=== PATIENT | male | born 2005 | race Caucasian/White ===

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

== ENCOUNTER 2025-05-10 09:18 | Outpatient (CLI) | payer OTHER, SELFPAY ==
--- OUTSIDE RECORDS SUMMARY | 2025-05-10 10:06 | XMS_ITS | Encounter Summary ---
Author Organization [facility] Address [address] [address] Care Team Providers Care Geophysical Computer Name Role Phone Pernell Saxena MD Primary Care Provider [phone] Encounter Details Date Type Department Care Team (Late st Contact Info) Description 08/25/[address] [address] Genesis Garcia MD [address] [place] [id number] Social History Tobacco Use Types Packs/Day Years Used Date Smoking Tobacco: Never Smokeless Tobacco: Never Alcohol Use Standard Drinks/Week Comments No 0 (1 standard drink = 0.6 oz pur e alcohol) Sex and Gender Information Value Date Recorded Sex Assigned at Not on file 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 Answer Date of Assessment Author No 03/31/2022 10:20 AM Haven Lagunas RN * Is person blind or have serious difficulty seeing? Answer Date of Assessment Author No 03/31/2022 10:20 AM Haven Lagunas RN * Does person have serious difficulty walking/climbing stairs? Answer Date of Assessment Author No 03/31/2022 10:20 AM Haven Lagunas RN * Does person have difficulty dressing/bathing? Answer Date of Assessment Author No 03/31/2022 10:20 AM Haven Lagunas RN * Does person have difficulty doing errands alone? Answer Date of Assessment Author Yes 03/31/2022 10:20 AM Haven Lagunas RN documented as of this encounter Mental Status * Does person have difficulty concentrating/remembering/making decisions? Answer Entry Date Author No 03/31/2022 10:20 AM Haven Lagunas RN documented in this encounter Miscellaneous Notes * Telephone Encounter - Genesis Garcia MD - 08/25/2023 4:26 PM CDT He has not been seen since November of last year. I can Rx one month worth PPI twice per day for ONLY one month, but he needs to be seen for more. Any provider fine. * Telephone Encounter - La Phillips RN - 08/25/2023 2:39 PM CDT Spoke to Keegan's Mom - She reports he's taking 40mg of nexium daily as prescribed. States even with PPI he has breakthrough reflux symptoms. Reports in the last week its keeping him up at night. Still eating/drinking ok, reports nausea but no vomiting, no recent illnesses or fever. Mom states he's really tried to watch his diet but nothing seems to help. Will forward update to Dr. Garcia for input. * Telephone Encounter - Sumaya Jung RN - 08/25/2023 12:34 PM CDT Received a call from mom that Keegan is having a lot of acid reflux even while on the Nexium 40mg once a day. Mom reports that they were going to establish care with a new GI because he is [address] Garcia's recommendations. Mom reports that they do not have a new GI. Mom is wanting to know what Dr. Garcia's thoughts are and would like to have his medical records sent to an adult GI office. Mom can be reached at [phone]. documented in this encounter Plan of Treatment Upcoming Encounters Date Type Department Care Team (Late st Contact Info) Description 10/04/2025 3:30 PM CDT Office Visit [facility] - ENT [address] [place] [address] Sayra Temple, JUAN [address] [place] [address] [place] [address] documented as of this encounter Visit Diagnoses Not on filedocumented in this encounter Care Teams Geophysical Computer Relationship Specialty Start Date End Date Pernell Saxena MD [address] [place] [phone] PCP - General Family Medicine 01/27/22 documented as of this encounter
--- OUTSIDE RECORDS SUMMARY | 2025-05-10 10:06 | XMS_ITS | Clinical Summary ---
Author Organization [facility] Address [address] [place] [address] Phone Care Team Providers Care Asphalt Worker Name Role Phone Unavailable Primary Care Provider Unavailabl e Allergies Active Allergy Reactions Criticality Noted Date Comments Penicillins Hives 11/06/2009 Medications cetirizine (ZyrTEC) 10 MG Tablet Take 10 mg by mouth. Active levothyroxine (SYNTHROID) 125 MCG Tablet Take 125 mcg by mouth. 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 Gender Identity Not on file Sexual Orientation Not on file Last Filed Vital Signs Vital Sign Reading Time Taken Comments Blood Pressure - - Pulse 92 03/31/2020 1:54 PM GENERAL LABORER Temperature 36.3 C (97.4 F) 03/31/2020 1:54 PM GENERAL LABORER Respiratory Rate - - Oxygen Saturation 98% 03/31/2020 1:54 PM GENERAL LABORER Inhaled Oxygen Concentration - - Weight 84.8 kg (187 lb) 03/31/2020 1:54 PM GENERAL LABORER Height - - Body Mass Index - - Plan of Treatment Health Maintenance Due Date Last Done Comments Hepatitis C Virus (HCV) Screening 2005 TdaP Immunization 2005 Varicella Immunization (1 of 2 - 13+ 2-dose series) 2018 Human Papillomavirus (HPV) Immunization (1 - Male 3-dose series) 01/08/2020 Meningococcal B Immunization (1 of 2 - Standard) 2021 Hepatitis B Immunization (1 of 3 - 19+ 3-dose series) 01/08/2024 Influenza Immunization (#1) 2025 SARS-COV-2 Immunization ( - 2024-26 season) 2025 Respiratory Syncytial Virus (RSV) Immunization (Adult) (1 - 1-dose 75+ series) 01/08/2080 Meningococcal Immunization (ACWY) Aged Out No longer eligible based on patient's age to complete this topic Pneumococcal Immunization Combined Aged Out No longer eligible based on patient's age to complete this topic Rotavirus Immunization Aged Out No lo nger eligible based on patient's age to complete this topic
--- OUTSIDE RECORDS SUMMARY | 2025-05-10 10:06 | XMS_ITS | Clinical Summary ---
Author Organization [facility] [employer] Address [address] [facility] [place] [address] Care Team Providers Care Foster Parent Name Role Phone Pernell Saxena MD Primary Care Provider [phone] Source Comments [facility] [employer],non-owned Affiliates and Associated Physician Practices is amultiple site organization consisting of ambulatory clinics and hospital sitesin [place], [place], [place] and [place]. This disclosure is being madepursuant to the Care Everywhere program and may not contain all information available regarding this patient. Last updated 18.[facility] [employer] Allergies Active Allergy Reactions Criticality Noted Date Comments Penicillins Urticaria 11/06/2009 Medications * Be aware that medications may not be up to date on this document. Alwaysverify current medications with the patient. cetirizine (ZYRTEC) 10 MG tablet Take 1 (one) tablet by mouth once daily Active buPROPion XL 24hr (WELLBUTRIN-XL) 150 MG tablet TAKE 1 TABLET BY MOUTH EVERY DAY IN THE MORNING 2 Active polyethylene glycol 3350 (MiraLax) 17 GM/SCOOP powder Take 17 (seventeen) g by mouth once daily 850 g 4 2 Active levothyroxine (Synthroid) 137 MCG tabletIndications: Congenital hypothyroidism Take 1 (one) tablet by mouth once daily 90 tablet 3 3 Active hyoscyamine (Levsin SL) 0.125 MG sublingual tablet Dissolve 1 (one) tablet under the tongue every 8 hours as needed for Spasms 40 tablet 5 3 Active esomeprazole (NexIUM) 40 MG capsule Take 1 (one) capsule by mouth 2 times daily, before breakfast and supper 180 capsule 4 Active Active Problems Problem Noted Date Diagnosed Date GERD (gastroesophageal reflux disease) 1 Chronic nonintractable headache 09/18/2017 Overview (09/18/2017): Keegan had 2 episodes where headache triggered weakness in his lower limbs and he felt he was not able to walk and after 4-5 hours it all resolved. Last time he was seen in the ER on 06/23/17 due to concern of lower extremity feeling heavy, weak after minute long sharp , pressure like pain in right temporal region. He was playing basket ball prior to that. He suddenly had headache went to lay down on the bench and started feeling that his body down neck was heavy and by the time EMS arrived he started feeling better Enough that only his legs felt heavy and not able to move. Similar episode happened about a year ago where he took a nap for 4 hours and got completely better on his own. He complained that he get 2-3 migraines per week and takes ibuprofen about 3 times a week. Usually does not have any neurological deficit except this two episodes. During this ER visit his older brother also was admitted for spontaneous pneumothorax from blebs. In the ER his exam was normal except he stiffened his legs when trying to walk. He walked out of hospital in next hour or so. Interval History LAMBERT Hx: First Onset: 8-9 Location: Left frontal. Radiate to: none Aura: None Duration: 4-6 Hours, and gives ibuprofen which helps him. Characteristic: Throbing headache and then sharp pain. Associated sx: Feels nausea and vominting after onset of headache and is a/w Photophobia, Phonophobia Frequency: 2-3/ month at onset; and got frequent to 2-3 per week but now spaced out once every 2 months. With physical activity more episodes. Exacerbating factors: Light and sounds Releaving factors: Sleeping, iuprofen Trauma/ Concussions: none Severity: 03/02. Other neurological Sx Not able to move his both legs, dragged at home. Triggers: None - stress, foods, beverages, lack of sleep, oversleeping, strong odors. LAMBERT change worse with: Physical activity. Missed scl in last 3 mo: None. someitmes restricts his daily activity. FHX of migraine LAMBERT: Both side Grandmothers, MEDICATION Ibuprofen, amitriptyline 10 mg for few months, - Did not help/; Vision evaluation: No need for prescription, needs vision therapy for focusing. Any seizure like activity none Sleep: Goes to sleep: 9 pm Falls a sleep in: 1 hour ; melatonin 5 mg and helps. Wakes up at: 5:30 - 6; 9 hrs of sleep per night. Snore: NO Get up gasping for air: NO Frequent awakenings: NO Day time naps: NO Toss and turn: NO Frequent meals: yes Caffeine /Tea / Soda: Tea occationally. Water intake: Drinks a lot of milk, 2.5 bottle of water. Exercise: PE, plays soccer. Stress at School / home : None. Depression evaluation: Sleep (insomnia/ hypersomnia): As above. Interest (diminished interest in pessurable activity): NO Guilt (feeling of unworthiness): NO Energy loss (fatigue): NO Concentration (decrease): NO Appetite change: NO Psycho-motor retardation/ agitation: NO Suicide/ homicidal (ideation): NO Prior neurological history: Negative for no neurological problems. Assessment & Plan (09/18/2017 7:09 AM CDT): 12 years old male with strong family hx of migraines comes for follow up after ER visit when he had acute migraine type headache triggers feeling of weakness in both lower extremities. This can be basilar migraine vs possible electrolyte abnormality. Explained that give fluids if he has one of these episodes right away and get his electrolytes checked right away. His frequency of headaches has gone down, so discussed that he does not need preventive medication. Continue ibuprofen for abortive medication. Goal: Decrease Headaches frequency and intensity to 0. PLAN: 1. Keep headache dairy. 2. Use ibuprofen as needed for headaches. If he is needing ibuprofen more then 3-4 times week then call us. Follow up in 6 months. Patient instructions: SMART headache management 1. Sleep: 1. Maintain good sleep routine. 2. Avoid distractions at bedtime such as TV, computer. 3. Get at least 8-10 hours of sleep nightly 2. Meals: Eat healthy diet, and do not skip meals 3. Activity: Maintain active lifestyle 4. Relaxation: decrease stress; Drink plenty of water, and avoid caffeine regularly. 5. Trigger avoidance :Do not use pain medication (such as Tylenol, Ibuprofen) more than 3-4 times/week in order to avoid medication overuse headaches. Congenital hypothyroidism 11/06/2009 Assessment & Plan (11/23/2018 2:00 PM CDT): 1) take levothyroxine daily 2) increase levothyroxine to 125mcg daily 3) check thyroid function today and again in 2 months 4) return in [address] Treviño Assessment & Plan (02/24/2016 1:32 PM CDT): 1) Check thyroid function today 2) return in [address] Treviño 3) continue present levothyroxine dose Assessment & Plan (08/26/2015 3:15 PM CDT): 1) NO changes at this time 2) recently increased levothyroxine to 112mcg daily 3) recheck levels in October 4) return in [address] 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 (AF LURIA, FLUZONE TRIVALENT; 6MO+) (IIV3) 04/01/2012,02/19/2010 DTaP VACCINE IM (6wk-6yrs) 2005,2005 ,2005 HEP B VACCINE, ADULT 3 DOSE 2005, 5,2005 HIB-PRP-OMP 3 DOSE 2005,2005, 005 INFLUENZA VACCINE 03/01/2013 MENINGOCOCCAL ACWY (MCV4P) VAC IM 11/06/2016 MMR 04/16/2006 MMR/VARICELLA 02/19/2010 POLIO IPV 2005,2005,2005 ROTAVIRUS, PENTAVALENT 01/13/2006 TDAP (7yrs+) 11/06/2016,02/19/2010 Family History Medical History Relation Name Comments Asthma Father Other Father GB removal, IBS , constipation, GERD Other Paternal Grandmother GERD, I BS, cholecystectomy Relation Name Status Comments Father Paternal Grandmother Social History Tobacco Use Types Packs/Day Years Used Date Smoking Tobacco: Never Passive Smoke Exposure: Never Smokeless Tobacco: Never Alcohol Use Standard Drinks/Week Comments No 0 (1 standard drink = 0.6 oz pur e alcohol) Sex and Gender Information Value Date Recorded Sex Assigned at Not on file Legal Sex Male 5:44 AM ERGONOMIST Gender Identity Not on file Sexual Orientation Not on file Last Filed Vital Signs Vital Sign Reading Time Taken Comments Blood Pressure 129/78 04/18/2025 1:53 PM ERGONOMIST Pulse 81 04/18/2025 1:53 PM ERGONOMIST Temperature 36.9 C (98.5 F) 12/06/2022 11:37 AM CDT Respiratory Rate 24 12/14/2022 10:28 AM CDT Oxygen Saturation 97% 04/18/2025 1:53 PM ERGONOMIST Inhaled Oxygen Concentration - - Weight 108.9 kg (240 lb) 04/18/2025 1:53 PM ERGONOMIST Height 177.8 cm (5' 10) 04/18/2025 1:53 PM ERGONOMIST Body Mass Index 34.44 04/18/2025 1:53 PM ERGONOMIST Plan of Treatment Upcoming Encounters Date Type Department Care Team (Late st Contact Info) Description 10/04/2025 3:30 PM CDT Office Visit [facility] - ENT [address] [place] [phone] Sayra Temple, JUAN [address] [place] [address] [address] [facility] [address] Health Maintenance Due Date Last Done Comments HEPATITIS B VACCINE (4 of 4 - 4-dose series) 2005 2005, 2005, 2005 HIV SCREENING 01/08/2020 HPV VACCINE (1 - Male 3-dose series) 01/08/2020 MENINGOCOCCAL (Group B) VACCINE SHARED DECISION-MAKING (1 of 2 - Standard) 2021 HEPATITIS C SCREENING 01/03/2023 DEPRESSION SCREENING 05/24/2024 COVID-19 VACCINE (1 - season) 2025 INFLUENZA VACCINE (#1) 2025 3, 04/01/2012, 02/19/2010 DTAP/TDAP/TD VACCINES (4 - Td or Tdap) 11/06/2026 11/06/2016, 02/19/2010, 2005, Additional history exists ZOSTER VACCINE (1 of 2) 2055 HIB VACCINE Aged Out 2005, 04/24, 2005 No longer eligible based on patient's age to complete this topic MENINGOCOCCAL GROUPS A/C/Y/W VACCINE Aged Out 11/06/2016 No longer eligible based on patient's age to complete this topic PNEUMOCOCCAL VACCINE Aged Out No long er eligible based on patient's age to complete this topic Insurance AETNA AETNA AETNA AETNA Care Teams Foster Parent Relationship Specialty Start Date End Date Pernell Saxena MD [facility] [place] [address] PCP - General Family Medicine 01/27/22
--- OUTSIDE RECORDS SUMMARY | 2025-05-10 10:06 | XMS_ITS | Encounter Summary ---
Author Organization [facility] Address [address] [place] [address] Care Team Providers Care Quality Assurance Qa Lab Analyst Name Role Phone Carissa Vivas MD Primary Care Provider [phone] Nichloas Woodard MD Primary Care Provider [phone] Carissa Vivas MD Primary Care Provider [phone] Pernell Saxena MD Primary Care Provider [phone] Reason for Visit * Reason Onset Date Comments Request Lab Order 08/31/2013 Mom would like to have patient's TFT's (T4 and TSH) done before they change ins later this month. She will bring him here to our lab to have them done. Can you put orders in please? Thanks! Encounter Details Date Type Department Care Team (Late st Contact Info) Description 08/31/2013 Telephone [facility] Pediatrics - Endocrinology [address] [place] [address] Gonsalo Treviño MD [facility] [place] [address] Request Lab Order (Mom would like to have patient's TFT's (T4 and TSH) done before they change ins later this month. She will bring him here to our lab to have them done. Can you put orders in please? Thanks!) Social History Tobacco Use Types Packs/Day Years Used Date Smoking Tobacco: Never Assessed Sex and Gender Information Value Date Recorded Sex Assigned at Not on file Legal Sex Male 5:44 AM BEEF KILLER Gender Identity Not on file Sexual Orientation Not on file documented as of this encounter Plan of Treatment Upcoming Encounters Date Type Department Care Team (Late st Contact Info) Description 10/04/2025 3:30 PM CDT Office Visit [facility] - ENT [address] [place] [phone] Sayra Temple, ELECTRICAL CAD TECHNICIAN [address] [address] [place] [address] documented as of this encounter Visit Diagnoses Not on filedocumented in this encounter Care Teams Quality Assurance Qa Lab Analyst Relationship Specialty Start Date End Date Carissa Vivas MD [address] [place] [phone] PCP - General 11/06/09 09/26/17 Nicholas Woodard MD [address] [place] [address] [place] [phone] PCP - General 09/27/17 11/21/19 Carissa Vivas MD [address] [place] [phone] PCP - General Family Medicine 11/22/19 01/26/22 Pernell Saxena MD [address] [place] [phone] PCP - General Family Medicine 01/27/22 documented as of this encounter
--- OUTSIDE RECORDS SUMMARY | 2025-05-10 10:06 | XMS_ITS | Encounter Summary ---
Author Organization [facility] Address [address] [facility] [place] [address] Care Team Providers Care Wildlife Conservationist Name Role Phone Pernell Saxena MD Primary Care Provider [phone] Reason for Visit * Reason Onset Date Comments Request Lab Order 09/30/2023 Encounter Details Date Type Department Care Team (Late st Contact Info) Description 09/30/2023 Telephone [facility] Pediatrics - Endocrinology [address] [place] [address] Vielka Mckenna Request Lab Order Social History Tobacco Use Types Packs/Day Years Used Date Smoking Tobacco: Never Smokeless Tobacco: Never Alcohol Use Standard Drinks/Week Comments No 0 (1 standard drink = 0.6 oz pur e alcohol) Sex and Gender Information Value Date Recorded Sex Assigned at Not on file Legal Sex Male 5:44 AM DIESEL INSTRUCTOR Gender Identity Not on file Sexual Orientation Not on file documented as of this encounter Functional Status * Is person deaf or have serious hearing difficulty? Answer Date of Assessment Author No 03/31/2022 10:20 AM Haven Lagunas RN * Is person blind or have serious difficulty seeing? Answer Date of Assessment Author No 03/31/2022 10:20 AM Haven Lagunas, RN * Does person have serious difficulty walking/climbing stairs? Answer Date of Assessment Author No 03/31/2022 10:20 AM Haven Lagunas, RN * Does person have difficulty dressing/bathing? Answer Date of Assessment Author No 03/31/2022 10:20 AM Haven Lagunas, RN * Does person have difficulty doing errands alone? Answer Date of Assessment Author Yes 03/31/2022 10:20 AM Haven Lagunas, RN documented as of this encounter Mental Status * Does person have difficulty concentrating/remembering/making decisions? Answer Entry Date Author No 03/31/2022 10:20 AM Haven Lagunas, RN documented in this encounter Miscellaneous Notes * Telephone Encounter - Alicia Bolanos MD - 10/01/2023 12:29 PM CDT Lab orders placed to [facility]. Please let family know. documented in this encounter Plan of Treatment Upcoming Encounters Date Type Department Care Team (Late st Contact Info) Description 10/04/2025 3:30 PM CDT Office Visit [facility] - ENT [address] [place] [phone] Sayra Temple, SYSTEMS INTEGRATION ANALYST [address] [place] [address] [place] [address] documented as of this encounter Visit Diagnoses Not on filedocumented in this encounter Care Teams Wildlife Conservationist Relationship Specialty Start Date End Date Pernell Saxena MD [address] [place] [phone] PCP - General Family Medicine 01/27/22 documented as of this encounter
--- OUTSIDE RECORDS SUMMARY | 2025-05-10 10:06 | XMS_ITS | Encounter Summary ---
Author Organization [facility] Address [facility] [facility] [address] Care Team Providers Care Speech Teacher Name Role Phone Pernell Saxena MD Primary Care Provider [phone] Reason for Visit * Reason Onset Date Comments MEDICATION REFILL 03/26/2022 Encounter Details Date Type Department Care Team (Late st Contact Info) Description 03/26/2022 Refill [facility] Pediatrics - Endocrinology [address] [place] [address] Alicia Bolanos MD [address] [place] [address] MEDICATION REFILL Social History Tobacco Use Types Packs/Day Years Used Date Smoking Tobacco: Never Smokeless Tobacco: Never Alcohol Use Standard Drinks/Week Comments No 0 (1 standard drink = 0.6 oz pur e alcohol) Sex and Gender Information Value Date Recorded Sex Assigned at Not on file Legal Sex Male 5:44 AM MEDICAL IMAGING TECHNOLOGIST Gender Identity Not on file Sexual Orientation Not on file documented as of this encounter Miscellaneous Notes * Telephone Encounter - Alicia Bolanos MD - 03/26/2022 4:11 PM CDT Prescription filed with a years worth of refills. documented in this encounter Plan of Treatment Upcoming Encounters Date Type Department Care Team (Late st Contact Info) Description 10/04/2025 3:30 PM CDT Office Visit [facility] - ENT [address] [place] [phone] Sayra Temple, PROGRAM MANAGER ENVIRONMENTAL PLANNING [address] [place] [address] 3 [place] [phone] documented as of this encounter Visit Diagnoses Diagnosis Congenital hypothyroidism documented in this encounter Care Teams Speech Teacher Relationship Specialty Start Date End Date Pernell Saxena MD [address] [place] [phone] PCP - General Family Medicine 01/27/22 documented as of this encounter
--- OUTSIDE RECORDS SUMMARY | 2025-05-10 10:06 | XMS_ITS | Encounter Summary ---
Author Organization [facility] Address [address] [facility] [place] [address] Care Team Providers Care Time Clerk Name Role Phone Carissa Vivas MD Primary Care Provider [phone] Nicholas Woodard MD Primary Care Provider [phone] Carissa Vivas MD Primary Care Provider [phone] Pernell Saxena MD Primary Care Provider [phone] Reason for Visit * Reason Onset Date Comments MEDICATION REFILL 12/26/2012 Levothyroxine. Please send to [facility] in [place]-- . Patient has f/u scheduled with Dr. Treviño on Mar 01. Encounter Details Date Type Department Care Team (Late st Contact Info) Description 12/26/2012 Telephone [facility] Pediatrics - Endocrinology [address] [place] [address] Gonsalo Treviño MD [address] [place] [phone] MEDICATION REFILL (Levothyroxine. Please send to [facility] in [place]-- . Patient has f/u scheduled with Dr. Treviño on Mar 01.) Social History Tobacco Use Types Packs/Day Years Used Date Smoking Tobacco: Never Assessed Sex and Gender Information Value Date Recorded Sex Assigned at Not on file Legal Sex Male 5:44 AM QUALITY ASSURANCE/R&D LAB TECHNICIAN Gender Identity Not on file Sexual Orientation Not on file documented as of this encounter Plan of Treatment Upcoming Encounters Date Type Department Care Team (Late st Contact Info) Description 10/04/2025 3:30 PM CDT Office Visit [facility] - ENT [address] [place] [phone] Sayra Temple, JUAN [address] [address] [place] [phone] documented as of this encounter Visit Diagnoses Not on filedocumented in this encounter Care Teams Time Clerk Relationship Specialty Start Date End Date Carissa Vivas MD [address] [place] [address] PCP - General 11/06/09 09/26/17 Nicholas Woodard MD [address] [place] [address] [place] [phone] PCP - General 09/27/17 11/21/19 Carissa Vivas MD [address] [place] [phone] PCP - General Family Medicine 11/22/19 01/26/22 Pernell Saxena MD [address] [place] [phone] PCP - General Family Medicine 01/27/22 documented as of this encounter
--- NOTE | 2025-06-04 09:41 | P.SLEEP_ITS ---
Sleep Study Date of Study: 05/10/25 Ordering Provider: Diana Gamboa APRN Interpreting Physician: Nhi Ortiz DO Sleep Study Type: Polysomnogram Height: 1.78 m Weight: 108.862 kg Body Mass Index: 34.4 Neck Circumference (inches): 17 [place]: 15 Reason for Sleep Study Daytime hypersomnia Sleep History The patient is a 20-year-old male that had a sleep study ordered by his sleep physician for evaluation of sleep apnea. The patient rarely awakens at night with heartburn, belching or cough. He denies snoring. He rarely has trouble sleeping when he has a cold. He denies waking up gasping for air throughout the night. He denies having breathing problems at night observed by himself or others. He occasionally sweats excessively at night. He denies having heart palpitations or irregular heartbeats during the night. He frequently falls asleep during the day and rarely falls asleep while driving. He denies cataplexy. He frequently has trouble at school or work due to sleepiness. He rarely feels unable to move while waking up or falling asleep. He frequently experiences vivid dreamlike scenes upon awakening or falling asleep. He denies feeling a pop of going to sleep. He occasionally has nightmares. He occasionally remembers his dreams. He constantly has thoughts racing through his mind. He rarely feels sad or depressed. He frequently has anxiety. He occasionally has muscular tension. He frequently notices parts of his body jerk. He denies kicking during the night. He occasionally has crawling and aching feelings in his legs but rarely has leg pain during the night. He rarely grinds his teeth during sleep. He occasionally has morning jaw pain. He is frequently bothered by pain during the day but rarely awakened by pain during the night. He frequently wakes up feeling stiff in the morning. He occasionally wakes up with sore or achy muscles. He frequently wakes up with pain in the neck, spine and other joints. He goes to bed between 1-2 a.m. on weekdays and between 1-4 a.m. on the weekends. It takes him either a few minutes or up to an hour to fall asleep. He will occasionally wake up an hour after falling asleep. He wakes up between 9-11 a.m. on weekdays and between 9:00 a.m. to 2:00 p.m. on the weekends. He typically gets 6 hours of sleep per night. He will stay in bed for 1 hour after waking up in the morning. He currently lives with his parents. He denies consuming any caffeinated beverages within 2 hours of bedtime. He denies engaging in physical exercise before bedtime. He will watch television before falling asleep. He will take naps in the afternoon or the evening and they are occasionally refreshing. He denies consuming any caffeinated beverages throughout the day. He denies tobacco, alcohol and recreational drug use. [facility] [place] Past Medical History Medical History Migraine headache with aura Closed fracture of left scapula Congenital hypothyroidism without goiter Abnormal findings on esophagogastroduodenoscopy (EGD) Headache ADHD (attention deficit hyperactivity disorder) Hypothyroidism Seizures Surgical History Surgical History History of tympanostomy Family History Family History Father Asthma Ankylosing spondylitis Sibling Asthma Other Heart disease Hypertension Social History Social History Smoking status: Never smoker Alcohol intake: never Substance use: never Lack of Transportation: No Lack of Food: Never True Current Housing: I Have Housing Concerned About Future Housing: No Difficulty Paying Gas/Electric Bills: No Difficulty Paying for Meds: No Currently Unemployed: No Education: High School Diploma/GED Difficulty w/ Childcare or Family Care: No Occupation/Education: student Medications Home Medications ?Medication ?Instructions ?Recorded ?Confirmed ?Type cetirizine 10 mg capsule (Zyrtec) 10 mg PO DAILY 07/1805/15/25 History bupropion HCl 150 mg 24 hr tablet, See Rx Instructions .Route 01/02/25 05/15/25 Rx extended release .COMPLEX #90 tabs esomeprazole magnesium 40 mg 40 mg PO DAILY #90 caps 0 01/02/25 05/15/25 Rx capsule,delayed release hyoscyamine sulfate 0.125 mg tablet 0.125 mg PO DAILY #90 tabs 01/02/25 05/15/25 Rx levothyroxine 175 mcg tablet 175 mcg PO DAILY #90 tabs 05/30/25 Rx (Euthyrox) Sleep Procedure A full night polysomnogram using the [employer] multi-channel system recorded the standard physiologic parameters including EEG, EOG, submentalis EMG, anterior tibialis EMG, EKG, body position, nasal and oral airflow using nasal pressure sensor and thermistor.? Respiratory parameters of chest and abdominal movements were recorded with Respiratory Inductance Plethysmography belts. Oxygen saturation was recorded by pulse oximetry. Video monitoring was also performed. Sleep stages, periodic limb movements, and EEG arousals were scored in 30 second epochs according to the criteria of the AASM Scoring Manual. The Apnea-Hypopnea Index was calculated using CMS guidelines for definition of hypopnea with 4% O2 desaturations while scoring respiratory events. Sleep Architecture The total recording time was 390.4 minutes.? The total sleep time was 304.5 minutes. Sleep latency was 6.2 minutes. REM latency was 100.5 minutes. Sleep efficiency was 78.0%. The patient had 33 awakenings for an awakening index of 6.5. Wake after sleep onset time was 79.5 minutes. The patient spent 30.5 minutes, 10.0% of total sleep time in Stage N1. The patient spent 188.5 minutes, 61.9% in Stage N2. The patient spent 30.0 minutes, 9.9% in Stage N3. The patient spent 55.5 minutes, 18.2% in Stage REM sleep. Respiratory Analysis Using AASM guidelines (pAHI 3%):The patient had 28 hypopneas, 3 mixed apneas, and 10 central apneas for an overall Apnea Hypopnea Index of 8.1. The REM Apnea Hypopnea Index was 11.9. The NREM Apnea Hypopnea Index was 7.2. The patient had a Central Apnea Hypopnea Index of 2.0. There was no evidence of Kendall-Manzano Respirations. Using CMS guidelines (pAHI 4%): The patient had 9 hypopneas, 3 mixed apneas, and 10 central apneas for an overall Apnea Hypopnea Index of 4.3. The REM Apnea Hypopnea Index was 8.6. The NREM Apnea Hypopnea Index was 3.4. The patient had a Central Apnea Hypopnea Index of 2.0. There was no evidence of Kendall-Manzano Respirations. Arousals There were 154 total arousals for an arousal index of 30.3. There were 86 spontaneous arousals for an index of 16.9. There were 12 arousals due to respiratory events for an index of 2.4. There were 3 arousals due to periodic limb movements for an index of 0.6.? There were 52 arousals due to isolated limb movements for an index of 10.2. Periodic Limb Movements The patient had 71 isolated limb movements with an index of 14.0. The patient had 5 periodic limb movements with an index of 1.0. Patient had a total of 76 limb movements with a total limb movement index of 15.0. Oximetry Data The patient had an average oxygen saturation of 94.9% in sleep with a minimum oxygen saturation of 91.0% and a maximum oxygen saturation of 99.0%. The patient had 13 oxygen desaturations that were 4% or greater resulting in an Oxygen Desaturation Index of 2.6.? The patient spent 0 minutes of total sleep time with an oxygen saturation below 88%. Snoring Profile Mild snoring was present throughout the study. Cardiac Profile The EKG showed normal sinus rhythm.?No arrhythmias or premature beats were seen. The patient had an average pulse rate of 66.9 bpm with a minimum pulse of rate of 52.0 bpm and a maximum pulse rate of 105.0 bpm.? EEG Profile No signs of seizure activity seen. Assessment and Plan Assessment and Plan (1) KIZZY (obstructive sleep apnea): Code(s): G47.33 - Obstructive sleep apnea (adult) (pediatric) Status: Acute Assessment and Plan: Per AASM guidelines (pAHI 3%), the patient had an overall AHI of 8.1 with desaturation down to 91%. This is consistent with mild sleep apnea. Due to the patient's hypersomnia (ESS of 15/24), he qualifies for treatment. I recommend that the patient be prescribed Resmed AutoPAP 5-15 cm H2O, CPAP mas k/filters/tubing and heated humidity. A mandibular advancement device is also an acceptable treatment option. This should be used with all episodes of sleep.? Compliance should be reviewed within 31-90 days of starting therapy for usage greater than 4 hours per night greater than 70% of the nights. The patient should be asked about symptoms such as?excessive daytime sleepiness, quality of sleep, decreased nocturia, increased?mental functioning such as memory, mood, and concentration. Per CMS guidelines (pAHI 4%), the patient had an overall AHI of 4.3 with desaturation down to 91%. This is not consistent with sleep-disordered breathing. If the patient's insurance only recognizes CMS criteria (pAHI 4%), the patient does not qualify for treatment. I would then repeat a home sleep test with a hypnotic at a later time due to the variability in sleep between separate days. Data The data obtained during this sleep study is adequate for interpretation. Certification This sleep study has been reviewed by a board certified sleep medicine physician.
[2025-06-04 09:50] VITALS: BMI 34.4
== END 2025-05-11 08:04 | disposition home or self-care (01) ==
PROVIDERS: PCP Nurse Practitioner Family; Visit Provider Nurse Practitioner Family
DX: G47.9 Sleep disorder, unspecified (principal); R56.9 Unspecified convulsions; G47.33 Obstructive sleep apnea (adult) (pediatric)
CPT/HCPCS: 95810